=== PATIENT | male | born 1925 | race Caucasian/White ===

== ENCOUNTER 2016-03-08 18:36 | Emergency (ER) | payer MEDICARE, OTHER ==
[2016-03-08] MEDS ORDERED: SOAP SUDS ENEMA 1 EACH RC SCH (21:00)
== END 2016-03-08 22:35 | disposition home or self-care (01) ==
DX: K59.00 Constipation, unspecified (principal); K21.9 Gastro-esophageal reflux disease without esophagitis; I10 Essential (primary) hypertension; I25.10 Atherosclerotic heart disease of native coronary artery without angina pectoris; Z95.5 Presence of coronary angioplasty implant and graft; Z95.0 Presence of cardiac pacemaker; Z79.82 Long term (current) use of aspirin

== ENCOUNTER 2016-03-28 09:37 | Outpatient (CLI) | payer MEDICARE, OTHER | END 2016-03-28 23:59 | DX: I10 Essential (primary) hypertension (principal); I25.10 Atherosclerotic heart disease of native coronary artery without angina pectoris; Z98.61 Coronary angioplasty status; I49.5 Sick sinus syndrome; Z95.0 Presence of cardiac pacemaker ==

== ENCOUNTER 2016-11-19 08:00 | Outpatient (CLI) | payer MEDICARE, OTHER ==
[2016-11-19 15:31] LABS: BASOPHILS # (AUTO) 0.1 10^3/uL (0.0-0.1); BASOPHILS % (AUTO) 0.9 %; EOSINOPHILS # (AUTO) 0.2 10^3/uL (0.0-0.7); EOSINOPHILS % (AUTO) 3.4 %; HGB - HEMOGLOBIN 14.9 g/dL (14.0-18.0); LYMPHOCYTES # (AUTO) 1.9 10^3/uL (1.5-3.5); LYMPHOCYTES % (AUTO) 27.3 %; MEAN CORPUSCULAR HEMOGLOBIN 30.9 pg (27.0-31.0); MEAN CORPUSCULAR HGB CONC 33.1 g/dL (32.0-36.0); MEAN CORPUSCULAR VOLUME 93.3 fL (80.0-94.0); MEAN PLATELET VOLUME 9.6 fL (7.4-11.4); MONOCYTES # (AUTO) 0.6 10^3/uL (0.0-1.0); MONOCYTES % (AUTO) 8.4 %; NEUTROPHILS # (AUTO) 4.2 10^3/uL (1.5-6.6); NUCLEATED RED BLOOD CELLS AUTO 0.1 /100WBC; RED BLOOD COUNT 4.82 10^6/uL (4.70-6.10); RED CELL DISTRIBUTION WIDTH 13.4 % (12.0-15.0)
[2016-11-19 15:50] LABS: ALBUMIN/GLOBULIN RATIO 1.2 (1.0-2.2); BILIRUBIN,TOTAL 0.9 mg/dL (0.2-1.0); BUN - BLOOD UREA NITROGEN 15 mg/dL (6-20); CARBON DIOXIDE - CO2 26 mmol/L (21-32); CHLORIDE 104 mmol/L (101-111); CHOL/HDL RATIO 2.8 (<5.0); CHOLESTEROL 108 mg/dL; GFR - MDRD 70 (>89); GLUCOSE 115 mg/dL (70-100); HDL CHOLESTEROL 39 mg/dL; LDL/HDL RATIO 1.2 (<3.6); POTASSIUM 3.6 mmol/L (3.5-5.0); SODIUM 139 mmol/L (135-145); TOTAL PROTEIN 7.2 g/dL (6.7-8.2); TRIGLYCERIDES 122 mg/dL; VLDL CHOLESTEROL 24 mg/dL
[2016-11-19 15:53] LABS: HEMOGLOBIN A1C 0.66 g/dL
== END 2016-11-19 08:01 | disposition home or self-care (01) ==
LOC: LAB.R 08:00
PROVIDERS: ATTEND Nurse Practitioner Primary Care
DX: R39.9 Unspecified symptoms and signs involving the genitourinary system (principal); R73.01 Impaired fasting glucose; I10 Essential (primary) hypertension; Z79.899 Other long term (current) drug therapy; Z12.5 Encounter for screening for malignant neoplasm of prostate; I25.10 Atherosclerotic heart disease of native coronary artery without angina pectoris
CPT/HCPCS: 80053; 80061; 83036; 85025; G0103; 84153

== ENCOUNTER 2017-06-18 18:06 | Observation (INO) | payer MEDICARE, OTHER ==
[2017-06-18 18:56] LABS: BASOPHILS # (AUTO) 0.1 10^3/uL (0.0-0.1); BASOPHILS % (AUTO) 0.8 %; EOSINOPHILS # (AUTO) 0.3 10^3/uL (0.0-0.7); EOSINOPHILS % (AUTO) 4.5 %; HGB - HEMOGLOBIN 13.6 g/dL (14.0-18.0); LYMPHOCYTES # (AUTO) 2.1 10^3/uL (1.5-3.5); LYMPHOCYTES % (AUTO) 27.5 %; MEAN CORPUSCULAR HEMOGLOBIN 30.2 pg (27.0-31.0); MEAN CORPUSCULAR VOLUME 91.7 fL (80.0-94.0); MEAN PLATELET VOLUME 8.8 fL (7.4-11.4); MONOCYTES # (AUTO) 0.6 10^3/uL (0.0-1.0); MONOCYTES % (AUTO) 8.3 %; NEUTROPHILS # (AUTO) 4.4 10^3/uL (1.5-6.6); NEUTROPHILS % (AUTO) 58.9 %; PLT - PLATELET COUNT 142 10^3/uL (130-450); RED BLOOD COUNT 4.51 10^6/uL (4.70-6.10); RED CELL DISTRIBUTION WIDTH 13.7 % (12.0-15.0); WHITE BLOOD COUNT 7.5 x10^3/uL (4.8-10.8)
[2017-06-18 19:04] LABS: INR 1.1 (0.8-1.2); PT - PROTHROMBIN TIME 12.2 secs (9.9-12.6)
--- NOTE | 2017-06-18 19:05 | ED Physician Documentation ---
PD HPI DYSPNEA - Stated complaint Stated Complaint: SOA - Chief complaint Chief Complaint: Resp - History obtained from History obtained from: Patient, Family - History of Present Illness Timing - onset: Today (This is an 89-year-old gentleman with history of hypertension hyperlipidemia and atrial fibrillation with a pacemaker who presents with shortness of breath today. It is not associated with cough or chest pain or pedal edema. Review of the chart shows a similar episode about a year and a half ago. He did have a positive BNP at that time. He is a little vague on his history and says he does not have any health problems, but he did have ischemic heart disease with 2 stents placed per the record about 7 years ago now. .He does note that the shortness of breath is worse if he lays flat or) Review of Systems Ten Systems: 10 systems reviewed and negative Constitutional: denies: Fever, Chills, Fatigue Throat: denies: Dental pain / toothache, Sore throat Cardiac: denies: Chest pain / pressure, Palpitations, Pedal edema, Calf pain Respiratory: denies: Cough, Hemoptysis, Wheezing PD PAST MEDICAL HISTORY - Past Medical History Past Medical History: Yes Cardiovascular: Hypertension, High cholesterol, Coronary artery disease, Atrial fibrillation Respiratory: None Neuro: None Endocrine/Autoimmune: None GI: GERD : None HEENT: Dental implants Psych: None Musculoskeletal: None, Chronic back pain Derm: None - Past Surgical History Past Surgical History: Yes General: Cholecystectomy, Other Cardiovascular: Coronary stent, Pacemaker - Present Medications Home Medications: Ambulatory Orders Medication Instructions Recorded Confirmed Omeprazole [PriLOSEC] 20 mg ORAL DAILY 02/10/16 02/12/16 Tamsulosin [Flomax] 0.4 mg ORAL DAILY 02/10/16 02/12/16 Acetaminophen [Tylenol] 650 mg PO Q4H PRN 02/13/16 02/13/16 Ascorbic Acid 500 mg PO DAILY 02/13/16 02/13/16 Aspirin 81 mg PO DAILY 02/13/16 02/13/16 Atorvastatin Calcium 20 mg PO DAILY 02/13/16 02/13/16 Azithromycin [Zithromax] 250 mg PO DAILY tablet 02/13/16 Calcium Carbonate [Calcium] 1,000 mg PO DAILY 02/13/16 02/13/16 Cholecalciferol (Vitamin D3) 5,000 units PO BID 02/13/16 02/13/16 [Vitamin D3] Furosemide [Lasix] 20 mg PO BIDDIURETIC #30 tablet 02/13/16 Losartan [Cozaar] 50 mg PO DAILY #30 tablet 02/13/16 Magnesium 500 mg PO DAILY 02/13/16 02/13/16 Melatonin 10 mg PO QPM 02/13/16 02/13/16 Metoprolol Succinate [Toprol Xl] 50 mg PO DAILY 02/13/16 02/13/16 Multivitamin [Theragran] 1 tab PO DAILY 02/13/16 02/13/16 Potassium Chloride 20 meq PO DAILY #10 tablet.er 02/13/16 Vitamin B Complex 1 tab PO DAILY 02/13/16 02/13/16 Vitamin E 1,000 units PO DAILY 02/13/16 02/13/16 - Allergies Allergies/Adverse Reactions: Allergies Allergy/AdvReac Type Severity Reaction Status Date / Time No Known Drug Allergies Allergy Verified 02/10/16 10:29 - Social History Does the pt smoke?: No Smoking Status: Never smoker Does the pt drink ETOH?: No Does the pt have substance abuse?: No - Family History Family history: reports: Non contributory - Immunizations Immunizations are current?: Yes - POLST Patient has POLST: No PD ED PE NORMAL - Vitals Vital signs reviewed: Yes - General General: Alert and oriented X 3, No acute distress - HEENT HEENT: PERRL, EOMI - Neck Neck: Supple, no meningeal sign, No bony TTP - Cardiac Cardiac: RRR, No murmur - Respiratory Respiratory: No respiratory distress, Clear bilaterally - Abdomen Abdomen: Normal bowel sounds, Soft, Non tender - Derm Derm: Normal color, Warm and dry - Extremities Extremities: No edema, No calf tenderness / cord - Neuro Neuro: Alert and oriented X 3, Normal speech - Psych Psych: Normal mood, Normal affect Results - Vitals Vitals: Vital Signs - 24 hr 06/18/17 06/18/17 06/18/17 18:25 20:09 20:55 Temperature 37.2 C Heart Rate 65 67 64 Respiratory 19 16 18 Rate Blood Pressure 199/98 H 176/105 H 168/106 H O2 Saturation 97 96 96 06/18/17 21:22 Temperature Heart Rate 78 Respiratory 12 Rate Blood Pressure 175/99 H O2 Saturation 93 Oxygen O2 Source Room air - EKG (time done) 1819 Rate: Rate (enter#) Rhythm: Other (AV dual paced.) Computer interpretation: Agree with computer - Labs Labs: Laboratory Tests 06/18/17 06/18/17 06/18/17 18:51 18:51 18:51 WBC 7.5 RBC 4.51 L Hgb 13.6 L Hct 41.4 L MCV 91.7 MCH 30.2 MCHC 33.0 RDW 13.7 Plt Count 142 MPV 8.8 Neut # 4.4 Lymph # 2.1 [place] # 0.6 Eos # 0.3 Baso # 0.1 Absolute Nucleated RBC 0.01 Nucleated RBC % 0.1 PT 12.2 INR 1.1 D-Dimer Sodium 139 Potassium 3.1 L Chloride 105 Carbon Dioxide 28 Anion Gap 6.0 BUN 19 Creatinine 1.0 Estimated GFR (MDRD) 70 L Glucose 125 H Calcium 9.3 Total Bilirubin 0.8 AST 16 ALT 13 Alkaline Phosphatase 65 B-Natriuretic Peptide Total Protein 6.6 L Albumin 3.5 Globulin 3.1 Albumin/Globulin Ratio 1.1 Lipase 17 L 06/18/17 06/18/17 18:51 18:51 WBC RBC Hgb Hct MCV MCH MCHC RDW Plt Count MPV Neut # Lymph # [place] # Eos # Baso # Absolute Nucleated RBC Nucleated RBC % PT INR D-Dimer 660.6 H Sodium Potassium Chloride Carbon Dioxide Anion Gap BUN Creatinine Estimated GFR (MDRD) Glucose Calcium Total Bilirubin AST ALT Alkaline Phosphatase B-Natriuretic Peptide 1032 H Total Protein Albumin Globulin Albumin/Globulin Ratio Lipase - Rads (name of study) 2v chest Radiology: EMP read contemporaneously (Borderline heart size with pulmonary edema) CT angiogram of the chest Radiology: EMP read contemporaneously (Congestive heart failure, no PE) PD MEDICAL DECISION MAKING - ED course ED course: 89-year-old gentleman with acute breathlessness with history of coronary disease and pacemaker in place. He is found to be in CHF but also a positive d- dimer, followed by a chest CT which was negative. He was administered Lasix and Nitropaste here. He was found to be hypoxic quickly when sitting up to get out of bed down to 89%. Called to Dr. Pimentel for admission at 9:30 PM. Departure - Departure Disposition: [facility] DC/Xfer Clinical Impression: Congestive heart failure Qualifiers: Heart failure type: unspecified Heart failure chronicity: acute Qualified Code( s): I50.9 - Heart failure, unspecified Dyspnea Qualifiers: Dyspnea type: orthopnea Qualified Code(s): R06.01 - Orthopnea Condition: Serious
[2017-06-18 19:10] LABS: ALBUMIN 3.5 g/dL (3.2-5.5); ALBUMIN/GLOBULIN RATIO 1.1 (1.0-2.2); BILIRUBIN,TOTAL 0.8 mg/dL (0.2-1.0); CALCIUM 9.3 mg/dL (8.5-10.3); TOTAL PROTEIN 6.6 g/dL (6.7-8.2)
--- NOTE | 2017-06-18 19:27 | XRAY Report ---
EXAM: CHEST RADIOGRAPHY EXAM DATE: 06/18/2017 07:20 PM. CLINICAL HISTORY: Dyspnea since yesterday. COMPARISON: 02/12/2016. TECHNIQUE: 2 views. FINDINGS: Lungs/Pleura: Mild interstitial prominence in the bases. No focal opacities evident. No pleural effus ion. No pneumothorax. Normal volumes. Mediastinum: Borderline heart size. Tortuous aorta. Stable dual lead left pacemaker. Other: No bony abnormalities identified. IMPRESSION: Borderline heart size with basilar interstitial prominence concerning for interstitial pu lmonary edema. [facility] Referring Provider Line: [phone] SITE ID: [id number]
[2017-06-18] MEDS ORDERED: FUROSEMIDE 40 MG/4 ML VIAL IVP STA (19:49)
[2017-06-18] MEDS ORDERED: NITROGLYCERIN 2% PASTE TOP STA (19:49)
[2017-06-18] MEDS ORDERED: IOPAMIDOL-300 100 ML VIAL ONE (20:15)
[2017-06-18] MEDS ORDERED: IOPAMIDOL-300 100 ML VIAL IVP ONE ×2 (20:43→23:05)
--- NOTE | 2017-06-18 21:05 | CT Report ---
EXAM: CT ANGIOGRAM CHEST EXAM DATE: 06/18/2017 08:44 PM. CLINICAL HISTORY: Dyspnea, high dimer. COMPARISON: None. TECHNIQUE: Routine helical imaging was performed through the chest in the pulmonary arterial phase. I V Contrast: 80 cc Isovue 300. Reconstructions: Sagittal, coronal, and 3-D MIP. In accordance with CT protocol optimization, one or more of the following dose reduction techniques w ere utilized for this exam: automated exposure control, adjustment of mA and/or KV based on patient s ize, or use of iterative reconstructive technique. FINDINGS: Pulmonary Arteries: Diagnostic quality: Adequate through the segmental arteries. No definite evidence for acute or chroni c pulmonary emboli. Cannot exclude lesions of subsegmental vessels due to prominent streak and motion artifacts. Dilation of main pulmonary artery measuring 3.6 cm, indicating pulmonary artery hypertens ion. RV/LV is within normal limits. There is no interventricular septal bowing. There is moderate reflux o f contrast material in the IVC compatible with right heart dysfunction. Lungs/Pleura: Prominent respiratory motion artifact. Allowing for this, hazy prominence of lung mike ngs especially in the bases. Numerous septal lines. No consolidation or definite effusion. Pleural th ickening in the lung bases, right more than left. No pneumothorax. Mediastinum: Mild cardiomegaly. No pericardial effusion. At least 2 vessel coronary artery calcificat ion. No lymphadenopathy. Thoracic Aorta: Unremarkable. Upper Abdomen: Unremarkable. Other: Degenerative changes. IMPRESSION: 1. No definite pulmonary embolism at this time, with caveat as noted above. Unremarkable aorta. 2. Cardiomegaly with IVC reflux, and prominent septal lines, suggesting congestive failure. 3. 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 [facility] Referring Provider Line: [phone] SITE ID: [id number]
[2017-06-18] MEDS ORDERED: POTASSIUM BICARB 25 MEQ TABLET PO STA (22:09)
[2017-06-18] MEDS ORDERED: SODIUM CHLORIDE FLUSH 0.9% 10 ML SYRINGE IVP PRN (23:04)
[2017-06-18] MEDS ORDERED: ONDANSETRON ODT 4 MG TABLET TL PRN (23:04)
[2017-06-18] MEDS ORDERED: ACETAMINOPHEN 325 MG TABLET PO PRN (23:04)
[2017-06-18] MEDS ORDERED: oxyCODONE 5 MG TABLET PO PRN (23:04)
[2017-06-19] MEDS ORDERED: FUROSEMIDE 40 MG/4 ML VIAL IVP SCH (00:01)
--- NOTE | 2017-06-19 00:08 | HISTORY & PHYSICAL EXAMINATION ---
Chief Complaint - Chief Complaint Chief Complaint: acute shortness of breath History of Present Illness - Admitted From Admitted From:: Home/ER - History Obtained From Records Reviewed: ADRIANO Mckeon History obtained from: patient and Dr. Robertson Exam Limitations: vague historian - History of Present Illness HPI Comment/Other: This morbidly overweight elderly gentleman who lives in his own home. He has documented coronary artery disease and ischemic cardiomyopathy. Cardiac stents and a cardiac pacemaker were placed on 2 subsequent occasions in 2010 when he was living in [place], [place].. 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 He did not see a help desk supervisor on a regular basis. When he lived in [place], he saw Chrissy Wolf but he hasn't seen him since 2011 (office number is [phone]). He does get his pacer checked by Dr. Hope at [facility]. His last pacer check was April 11, 2017 where he had an appropriate rate histogram. It was 74% atrial pacing. 94% ventricular pacing. 11 episodes of consecutive PVCs, 18 brief episodes of atrial tachycardia or A. fib. He is due for another pacer check in July. The last time he saw Dr. Hope was in January 2017. In reviewing that note, the patient did not share with Dr. Hope that he was admitted for congestive heart fire in February [address]. [address] Hope refer to an echocardiogram from February 2016. The patient can't remember if he let Dr. Hope know that there is a problem. Nevertheless, the patient was admitted in February 2016. He initially presented February 09 with a nonproductive cough and was treated as otitis media, angina, with negative troponins, negative EKG. When he went home he continued to have increasing cough, started having orthopnea. Also started having dyspnea on exertion and came back February 11 and was admitted as acute congestive heart failure with an overnight observation stay. ECHO was done then . he was sent home the next day. The patient has had 2 echocardiograms for shortness of breath. The first was October 2014. He had moderate concentric left ventricular hypertrophy. Ejection fraction was normal at 50-60% and there were no regional wall abnormalities. A February 2016 echo showed his ejection fraction to have come down to 45-50%. He had new anterolateral and anteroseptal mild hypokinesis. New severe bilateral atrial enlargement. He had some mild mitral and tricuspid regurgitation. Aortic valve sclerosis without stenosis. There was no evidence of pulmonary hypertension. As already stated, he was seen in follow for pacer check, no mention of congestive heart faillure. Dr. Hope notes from January 2017 shows no JVD, no crackles, no edema and a negative review of systems. He has NOT been compliant with his meds. He had "sudden" shortness of breath today. Was sob at rest and couldn't get comfortable with laying down so came to the ER. His BNP was elevated and he did have crackes. He has already improved with his lasix in the ER with his sob and will be placed in observation. Denies cp, edema , palpitations, fever, chills, and has not been indiscrete with his dietary intake of salt. He tells me he's moving back to [place], [place] on 06/24/17 to be closer to one of his sons. History - Past Medical History Cardiovascular: reports: Hypertension (difficult to control and has renal artery stenosis.), High cholesterol, Coronary artery disease (with 2 angioplasties and 2 stents in 2010, ), Atrial fibrillation (alternating with bradycardia. Pacer placed 2010. ) Respiratory: reports: None Neuro: reports: None Endocrine/Autoimmune: reports: None GI: reports: GERD, Chronic constipation (was seen in ER last year for enema.) : reports: None HEENT: reports: Dental implants Psych: reports: None Musculoskeletal: reports: Osteoarthritis, Chronic back pain (which limits his mobility and leads to sedentary life.) Derm: reports: None MRSA Hx?: No Other Past Medical History: Enlarged left submanidbular glad evaluated with CT and negative for maligancy by exam. - Past Surgical History General: reports: Cholecystectomy, Other Ortho: reports: Spine surgery (with cervical fusion and lumbar laminectomy) Cardiovascular: reports: Coronary stent, Pacemaker - Family & Social History Family History Comment/Other: His mother age 86 of complications of taking medications that were given to her by her doctors. He can't remember what disease she had to be taking his medicines. His father at age 91. He had angina and was taking nitroglycerin for angina and of old age. He had one sister who at 54 of doing things "to in excess". But he is vague about what that "excess" was. One sister is alive and healthy as far she knows. His 5 children are healthy and he denies any problems with heart disease, cancer, thyroid, diabetes, hypertension, etc. Living arrangement: At home Living Situation: With spouse/s.o. Social History Notes: he was born in [place]. And moved to [facility] for two years and then the [facility] when he was was 30 years old. 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 He is to his second who is 13 years younger, has 5 children , 4 who live in the [facility] and 1 in the [facility], and he lives in his own home with his . He smoked for about one year when he was in his 20s, has not smoked since. He denies the use of marijuana, cocaine, methamphetamines, LSD - Substance History Use: Uses substance without health or social issues: NONE Abuse: Recurrent use of substance despite neg consequences: NONE Dependence: Experiences withdrawal or developed tolerances: NONE - POLST Patient has POLST: No POLST Status: DNR Meds/Allgy - Home Medications Home Medications: Ambulatory Orders Medication Instructions Recorded Confirmed Omeprazole [PriLOSEC] 20 mg ORAL DAILY 02/10/16 02/12/16 Tamsulosin [Flomax] 0.4 mg ORAL DAILY 02/10/16 02/12/16 Acetaminophen [Tylenol] 650 mg PO Q4H PRN 02/13/16 02/13/16 Ascorbic Acid 500 mg PO DAILY 02/13/16 02/13/16 Aspirin 81 mg PO DAILY 02/13/16 02/13/16 Atorvastatin Calcium 20 mg PO DAILY 02/13/16 02/13/16 Azithromycin [Zithromax] 250 mg PO DAILY tablet 02/13/16 Calcium Carbonate [Calcium] 1,000 mg PO DAILY 02/13/16 02/13/16 Cholecalciferol (Vitamin D3) 5,000 units PO BID 02/13/16 02/13/16 [Vitamin D3] Furosemide [Lasix] 20 mg PO BIDDIURETIC #30 tablet 02/13/16 Losartan [Cozaar] 50 mg PO DAILY #30 tablet 02/13/16 Magnesium 500 mg PO DAILY 02/13/16 02/13/16 Melatonin 10 mg PO QPM 02/13/16 02/13/16 Metoprolol Succinate [Toprol Xl] 50 mg PO DAILY 02/13/16 02/13/16 Multivitamin [Theragran] 1 tab PO DAILY 02/13/16 02/13/16 Potassium Chloride 20 meq PO DAILY #10 tablet.er 02/13/16 Vitamin B Complex 1 tab PO DAILY 02/13/16 02/13/16 Vitamin E 1,000 units PO DAILY 02/13/16 02/13/16 - Allergies Allergies/Adverse Reactions: Allergies Allergy/AdvReac Type Severity Reaction Status Date / Time No Known Drug Allergies Allergy Verified 02/10/16 10:29 Review of Systems - Constitutional Constitutional: denies: Fatigue, Fever, Chills, Malaise, Weakness, Poor appetite - Eyes Eyes: denies: Pain, Irritation, Amaurosis, Blurred vision, Field loss - Ears, Nose & Throat Ears, Nose & Throat: reports: Hearing loss. denies: Ear pain, Hearing aids, Tinnitus, Vertigo, Nasal obstruction, Nasal congestion - Cardiovascular Cariovascular: reports: Irregular heart rate, Palpitations, Exertional dyspnea, Decr. exercise tolerance, Other (He is sedentary because of his back pain. He is very vague about what he does with his days. He talks about hiring around with his tomato plants. But that's about it.). denies: Chest pain, Edema, Lightheadedness, Syncope - Respiratory Respiratory: reports: Snoring, SOB with exertion, Other (daytime fatigue getting worse and worse). denies: Cough, Sputum production, Wheezing - Gastrointestinal Gastrointestinal: reports: Constipation. denies: Abdominal pain, Abdominal distention, Diarrhea, Change in bowel habits, Rectal bleeding, Black stools, Bloody stools, Nausea, Vomiting - Genitourinary Genitourinary: reports: Nocturia. denies: Dysuria, Frequency, Urgency, Hematuria - Musculoskeletal Musculoskeletal: reports: Back pain, Joint pain - Integumentary Integumentary: denies: Rash, Pruritis, Lesions, Dryness - Neurological Neurological: denies: General weakness, Focal weakness, Headache, Memory problems, Pre-existing deficit - Psychiatric Psychiatric: denies: Depression, Anxiety, Suicidal - Endocrine Endocrine: denies: Polyuria, Polydypsia, Polyphagia - Hematologic/Lymphatic Hematologic/Lymphatic: denies: Anemia, Bruising, Petechiae Exam - Vital Signs Reviewed Vital Signs: Yes Vital Signs: Vital Signs x48h Temp Pulse Resp BP Pulse Ox 06/18/17 23:52 36.6 C 72 17 165/94 H 94 - Physical Exam General Appearance: positive: No acute distress, Alert, Other (sitting up on the sofa in his room, eating a sandwich and quite comfortable as he speaks to me.) Eyes Bilateral: positive: PERRL, EOMI ENT: positive: Pharynx nml Neck: positive: No JVD. negative: Stiff neck, Carotid bruit Respiratory: positive: Chest non-tender. negative: Wheezes, Rales, Rhonchi Cardiovascular: positive: Regular rate & rhythm, Systolic murmur. negative: Gallop/S4, Friction rub Peripheral Pulses: positive: 1+ Abdomen: positive: Non-tender, No organomegaly, Nml bowel sounds, No distention Extremities: positive: Non-tender, Full ROM Neurologic/Psychiatric: positive: Oriented x3, CN's nml (2-12) (except mildy deaf.), Motor nml, Other (Although he is oriented to person, time, place there may be some memory loss that he is hiding well. When I ask him to pinpoint his daytime activities, his exceedingly vague. He can't tell me what he did yesterday. Sentences are chopped off. He seems to forget the words he is looking for and just stop in mid sentence and go onto the Meds so conversational style is choppy and unstructured at times. But that may be his style with regards to [place] tumor. He stoutly maintains that he pays the bills but he reluctantly admits that his is starting to take over. He drives but hesitates before technology not. His mobility is limited by back pain. Although he states he could still mow the yard, and take care of the house if he needed to, right now he tires people to do that.) Conclusion/Plan - Problem List (1) Acute on chronic systolic and diastolic heart failure, NYHA class 4 Conclusion/Plan: presents with "sudden" sob this morning that worsened over the day. No chest pain. No antecedent viral illness. is noncompliant with CHF meds. Here troponin is <0.04, BNP elevated. CT done for PE negative for embolic but shows changes of chf. Plan: place in [facility] for diuresis already with one dose of lasix in ER at 8 pm and will give another at midnight. anticipate dc in am since he is already much, much improved from his sutton and sob at rest. check BNP in am check ECHO in am reminded the importance of taking his meds. he is reluctant to followup with Dr. Hope here since he is moving in a week. I will have case managment call Dr. Wolf's office in the morning and get an appointment there so he has a visit scheduled when he moves back to [place]. (2) HTN (hypertension) Conclusion/Plan: not at goal. Didn't take his meds yesterday or today and can't say why. Plan: lasix already given. resume his beta gwen and ARB in the am. Qualifiers: Hypertension type: essential hypertension Qualified Code(s): I10 - Essential (primary) hypertension (3) Hypokalemia Conclusion/Plan: given po supplement in the ER. check in the am. (4) Memory deficit Conclusion/Plan: he is a vague historian at times. almost evasive. sentence completion left hanging at times and I can't tell if it's bc he assumes I can infer the rest or he is forgetting his words. He first tells me he's moving 06/14 but when I remind him it's the 18 already he quickly changes the date to the . Can't tell me why he's unhappy here. Just is. "we made a mistake moving here to be close to the [employer]" but can't specify what the mistake was: weather? finances? garden? culture? friends?. He just keeps on saying it just is. When I ask about family history he can't remember why his mom . Just that it was mediation error but not what the disease she was being treated for. He reluctantly admits is now paying the bills because "she wants to" and not because he may be doing it incorrectly. If his PCP or help desk supervisor reads this note, consider early dementia vs. cognitive deficit of aging. - Lab Results Fish Bones: 06/18/17 18:51 06/18/17 18:51 - Diagnostic Imaging Results Diagnostic Imaging Results: positive: Final report reviewed - EKG Results EKG Interpreted Independently: No Core Measures - Anticipated LOS I expect patient to be DC'd or transferred within 96 hours.: Yes - DVT/VTE - Prophylaxis VTE/DVT Device ordered at admit?: Yes
[2017-06-19] MEDS: SODIUM CHLORIDE FLUSH 0.9% 10 ML SYRINGE IVP SCH ×2 (00:38→09:58)
[2017-06-19 06:01] LABS: CALCIUM 9.3 mg/dL (8.5-10.3)
[2017-06-19] MEDS ORDERED: MAGNESIUM OXIDE 400 MG TABLET PO SCH (08:00)
[2017-06-19] MEDS ORDERED: AZITHROMYCIN 250 MG TABLET PO SCH (09:00)
[2017-06-19] MEDS ORDERED: POLYETHYLENE GLYCOL 3350 17 GM PACKET PO SCH (09:00)
[2017-06-19] MEDS ORDERED: LOSARTAN 50 MG TABLET PO SCH (09:00)
[2017-06-19] MEDS ORDERED: ASPIRIN CHEW 81 MG TABLET PO SCH (09:00)
[2017-06-19] MEDS ORDERED: MULTIVITAMIN TABLET PO SCH (09:00)
[2017-06-19] MEDS ORDERED: POTASSIUM CHLORIDE 20 MEQ TABLET PO SCH (09:00)
[2017-06-19] MEDS ORDERED: ATORVASTATIN 10 MG TABLET PO SCH (09:00)
[2017-06-19] MEDS ORDERED: TAMSULOSIN 0.4 MG CAPSULE PO SCH (09:00)
[2017-06-19] MEDS ORDERED: METOPROLOL SUCCINATE 25 MG TABLET PO SCH (09:00)
--- NOTE | 2017-06-19 11:54 | Discharge Plan ---
Discharge Plan Disposition: 01 Home, Self Care Condition: Poor Diet: Cardiac Activity Restrictions: Activity as Tolerated Shower Restrictions: No (caregiver closely monitor, fall precaution) Instruction Topics: Heart Failure, Heart Failure Congestive Ch Additional Instructions or Follow Up instructions: May follow up Dr. Sahil Hope on June 26 10:25 am in [facility] office, follow up PCP in 2-3 days. Should symptoms return or worsen, may present ER or call 911 for help Follow-Up Care: [facility], [facility] Classes No Smoking: If you smoke, Please STOP! Call for help. Follow-up with: Sascha Varghese ARNP [Primary Care Provider] -
[2017-06-19] MEDS ORDERED: POTASSIUM CHLORIDE 20 MEQ TABLET PO ONE (12:00)
--- NOTE | 2017-06-19 12:01 | DISCHARGE SUMMARY ---
Discharge Summary Discharge Date: 06/19/17 Discharging Provider: NUNEZ Primary Care Provider: Dr. Wolf Condition at Discharge: Poor Discharge Disposition: 01 Home, Self Care Discharge Facility Name: home - DIAGNOSES Admission Diagnoses: (1) Acute on chronic systolic and diastolic heart failure, NYHA class 4 (2) HTN (hypertension) (3) Hypokalemia (4) Memory deficit Discharge Diagnoses with Status of Each Condition: (1) Acute on chronic systolic and diastolic heart failure, NYHA class 4 after twice of diuretics, pt is hemodynamic stable, no acute distress, no Chest pain, no shortness of breath, no fever, no cough. ECHO reveals his baseline. CTA reveals no PE. We called pt's recreation supervisor and made the closest appointment to him. (2) HTN (hypertension) stable, continue home regime (3) Hypokalemia replaced, continue home regime, and managed by PCP (4) Memory deficit stable. - HPI History of Present Illness: refer from Dr. Pimentel's HPI for pt as the following: This morbidly overweight elderly gentleman who lives in his own home. He has documented coronary artery disease and ischemic cardiomyopathy. Cardiac stents and a cardiac pacemaker were placed on 2 subsequent occasions in 2010 when he was living in [place], [place].. 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 He did not see a recreation supervisor on a regular basis. When he lived in [place], he saw Chrissy Wolf but he hasn't seen him since 2011 (office number is ). He does get his pacer checked by Dr. Hope at [facility]. His last pacer check was April 11, 2017 where he had an appropriate rate histogram. It was 74% atrial pacing. 94% ventricular pacing. 11 episodes of consecutive PVCs, 18 brief episodes of atrial tachycardia or A. fib. He is due for another pacer check in July. The last time he saw Dr. Hope was in January 2017. In reviewing that note, the patient did not share with Dr. Hope that he was admitted for congestive heart fire in February [address]. [address] Hope refer to an echocardiogram from February 2016. The patient can't remember if he let Dr. Hope know that there is a problem. Nevertheless, the patient was admitted in February 2016. He initially presented February 09 with a nonproductive cough and was treated as otitis media, angina, with negative troponins, negative EKG. When he went home he continued to have increasing cough, started having orthopnea. Also started having dyspnea on exertion and came back February 11 and was admitted as acute congestive heart failure with an overnight observation stay. ECHO was done then . he was sent home the next day. The patient has had 2 echocardiograms for shortness of breath. The first was October 2014. He had moderate concentric left ventricular hypertrophy. Ejection fraction was normal at 50-60% and there were no regional wall abnormalities. A February 2016 echo showed his ejection fraction to have come down to 45-50%. He had new anterolateral and anteroseptal mild hypokinesis. New severe bilateral atrial enlargement. He had some mild mitral and tricuspid regurgitation. Aortic valve sclerosis without stenosis. There was no evidence of pulmonary hypertension. As already stated, he was seen in follow for pacer check, no mention of congestive heart faillure. Dr. Hope notes from January 2017 shows no JVD, no crackles, no edema and a negative review of systems. He has NOT been compliant with his meds. He had "sudden" shortness of breath today. Was sob at rest and couldn't get comfortable with laying down so came to the ER. His BNP was elevated and he did have crackes. He has already improved with his lasix in the ER with his sob and will be placed in observation. Denies cp, edema , palpitations, fever, chills, and has not been indiscrete with his dietary intake of salt. He tells me he's moving back to [place], [place] on 06/24/17 to be closer to one of his sons. - HOSPITAL COURSE Hospital Course: pt was admitted for acute on chronic of CHF in observation unit. Pt was given twice IV of diuretics. Pt's symptoms was resolved. 95% Sats of O2 on room air. No shortness of breath, chest pain. CTA reveals no PE. ECHO reveals EF at 35-40 % as his baseline and with moderate global hypokinesis, RVSP 45. we called pt's recreation supervisor and made the closed appointment for pt. - ALLERGIES Allergies/Adverse Reactions: Allergies Allergy/AdvReac Type Severity Reaction Status Date / Time No Known Drug Allergies Allergy Verified 02/10/16 10:29 - MEDICATIONS Home Medications: Ambulatory Orders Medication Instructions Recorded Confirmed Tamsulosin [Flomax] 0.4 mg PO DAILY 02/10/16 06/19/17 Acetaminophen [Tylenol] 650 mg PO Q4H PRN 02/13/16 06/19/17 Ascorbic Acid 500 mg PO DAILY 02/13/16 06/19/17 Aspirin 81 mg PO DAILY 02/13/16 06/19/17 Atorvastatin Calcium 20 mg PO QPM 02/13/16 06/19/17 Calcium Carbonate [Calcium] 1,000 mg PO DAILY 02/13/16 06/19/17 Cholecalciferol (Vitamin D3) 5,000 units PO BID 02/13/16 06/19/17 [Vitamin D3] Furosemide [Lasix] 20 mg PO BIDDIURETIC #30 tablet 02/13/16 06/19/17 Magnesium 500 mg PO DAILY 02/13/16 06/19/17 Melatonin 10 mg PO QPM 02/13/16 06/19/17 Multivitamin [Theragran] 1 tab PO DAILY 02/13/16 06/19/17 Potassium Chloride 20 meq PO DAILY #10 tablet.er 02/13/16 06/19/17 Vitamin B Complex 1 tab PO DAILY 02/13/16 06/19/17 Vitamin E 1,000 units PO DAILY 02/13/16 06/19/17 Amlodipine Besylate [Norvasc] 10 mg PO DAILY 06/19/17 06/19/17 Docusate Sodium 100 - 200 mg PO DAILY PRN 06/19/17 06/19/17 Latanoprost 1 drops EACHEYE QPM 06/19/17 06/19/17 Losartan Potassium 100 mg PO DAILY 06/19/17 06/19/17 Metoprolol Succinate 50 mg PO DAILY 06/19/17 06/19/17 Omeprazole 20 mg PO QDAC 06/19/17 06/19/17 Polyethylene Glycol 3350 [Miralax] 17 gm PO DAILY PRN 06/19/17 06/19/17 Psyllium Husk (with Sugar) 1 - 3 tbs PO DAILY PRN 06/19/17 06/19/17 [Metamucil Powder] - PHYSICAL EXAM AT DISCHARGE General Appearance: positive: No acute distress, Alert. negative: Lethargic Eyes Bilateral: positive: Normal inspection, PERRL, No lid inflammation, Conjunctivae nml ENT: positive: ENT inspection nml, Pharynx nml. negative: Purulent nasal drainage, Pharyngeal erythema, Oral lesions Neck: positive: Nml inspection, Thyroid nml, No JVD, Trachea midline. negative : Thyromegaly, Lymphadenopathy (R), Lymphadenopathy (L), Stiff neck, Carotid bruit, Swelling/bruising, Tracheal deviation Respiratory: positive: Chest non-tender, No respiratory distress, Breath sounds nml. negative: Wheezes, Rales, Rhonchi Cardiovascular: positive: Regular rate & rhythm, No murmur, No gallop. negative : Irregularly irregular, Extrasystoles, Tachycardia, Bradycardia, JVD present, Systolic murmur, Diastolic murmur Peripheral Pulses: positive: 2+ Abdomen: positive: Non-tender, No organomegaly, Nml bowel sounds, No distention. negative: Tenderness, Guarding, Rebound Back: positive: Nml inspection. negative: CVA tenderness (R), CVA tenderness (L ) Skin: positive: Color nml, No rash, Warm, Dry. negative: Cyanosis, Diaphoresis , Pallor Extremities: positive: Non-tender, Full ROM, Nml appearance. negative: Calf tenderness, Joint swelling, Yoko's sign/cords, Other Neurologic/Psychiatric: positive: Oriented x3, Sensation nml, Mood/affect nml. negative: Sensory loss, Facial droop, Slurred/abnml speech, Depressed mood/ affect - LABS Result Diagrams: 06/18/17 18:51 06/19/17 05:39 - FOLLOW UP Follow Up: May follow up Dr. Sahil Hope on June 26 10:25 am [facility], follow up PCP in 2-3 days. Should symptoms return or worsen, may present ER or call 911 for help - TIME SPENT Time Spent in Discharge (Minutes): 40
[2017-06-19 13:09] VITALS: BP 136/68
[2017-06-19] MEDS ORDERED: Melatonin [Melatonin] 10 MG PO SCH (21:00)
== END 2017-06-19 13:24 | disposition home or self-care (01) ==
LOC: ED 18:06 → OBS 23:04
PROVIDERS: ADMIT Specialist; ATTEND Specialist
DX: I11.0 Hypertensive heart disease with heart failure (principal); I50.43 Acute on chronic combined systolic (congestive) and diastolic (congestive) heart failure; E87.6 Hypokalemia; R41.89 Other symptoms and signs involving cognitive functions and awareness; I25.10 Atherosclerotic heart disease of native coronary artery without angina pectoris; I25.5 Ischemic cardiomyopathy; I49.5 Sick sinus syndrome; Z91.14 Patient's other noncompliance with medication regimen; K21.9 Gastro-esophageal reflux disease without esophagitis; K59.09 Other constipation; Z98.1 Arthrodesis status; H91.90 Unspecified hearing loss, unspecified ear; Z66 Do not resuscitate; Z79.82 Long term (current) use of aspirin; Z79.899 Other long term (current) drug therapy; Z87.891 Personal history of nicotine dependence; Z95.0 Presence of cardiac pacemaker; Z95.5 Presence of coronary angioplasty implant and graft
CPT/HCPCS: 36415; 71046; 71275; 80048; 80053; 83690; 83880; 84484; 85025; 85379; 85610; 93005; 93306; 96374; 96376; 99283; 99284; A9270; G0378; Q9967